=== PATIENT | male | born 1985 | race Caucasian/White ===

== ENCOUNTER 2020-01-18 19:49 | Emergency (ER) | payer MEDICARE, MEDICAID ==
--- NOTE | 2020-01-18 20:29 | ER Document Report ---
ED Medical Screen (RME) - General Chief Complaint: Psych Problem Stated Complaint: PSYCH Time Seen by Provider: 01/18/20 20:21 Primary Care Provider: ADALBERTO VIERA MD [Primary Care Provider] - Follow up as needed Notes: HPI: 34-year-old male with schizophrenic type history presenting for hearing voices states he has heard voices for 10 years does not tell him to do anything specific such as harming others or harming himself but does admit to snorting Adderall twice today states he then called EMS because he had overused his medications in this way. Patient states that when he snorts the Adderall he feels like an "voice ninja". PHYSICAL EXAMINATION: Patient is very disjointed in his speech pattern and thought pattern. Patient stops our conversation to state that he is hearing voices again. Patient denies wanting to harm others. Patient lung sounds are clear to auscultation regular rate and rhythm. I have greeted and performed a rapid initial assessment of this patient. A comprehensive ED assessment and evaluation of the patient, analysis of test results and completion of medical decision making process will be conducted by an additional ED providers. TRAVEL OUTSIDE OF THE [place] IN LAST 30 DAYS: No - Related Data Allergies/Adverse Reactions: diphenhydramine HCl [From Benadryl] Allergy (Verified 09/01/14 13:35) haloperidol [From Haldol] Allergy (Verified 09/01/14 13:35) haloperidol lactate [From Haldol] Allergy (Verified 09/01/14 13:35) Home Medications: depakote, abilify, med q mnth Past Medical History - Social History Frequency of alcohol use: None Drug Abuse: Prescription drugs Psychiatric Medical History: Reports: Hx Bipolar Disorder, Hx Schizophrenia - Immunizations Hx Diphtheria, Pertussis, Tetanus Vaccination: Yes Physical Exam - Vital signs Vitals: Temp Pulse Resp BP Pulse Ox 98.4 F 100 20 148/93 H 97 01/18/20 20:02 01/18/20 20:02 01/18/20 20:02 01/18/20 20:02 01/18/20 20:02 Course - Vital Signs Vital signs: Temp Pulse Resp BP Pulse Ox 98.4 F 100 20 148/93 H 97 01/18/20 20:02 01/18/20 20:02 01/18/20 20:02 01/18/20 20:02 01/18/20 20:02 Doctor's Discharge - Discharge Referrals: ADALBERTO VIERA MD [Primary Care Provider] - Follow up as needed
[2020-01-18 20:56] LABS: ABSOLUTE BASOPHILS # (AUTO) 0.1 10^3/uL (0.0-0.2); ABSOLUTE EOSINOPHILS # (AUTO) 0.2 10^3/uL (0.0-0.6); ABSOLUTE LYMPHOCYTES (AUTO) 2.4 10^3/uL (0.5-4.7); ABSOLUTE NEUT (AUTO) 9.1 10^3/uL (1.7-8.2); BASOPHILS % (AUTO) 0.9 % (0-2); EOSINOPHILS % (AUTO) 1.2 % (0-6); HEMATOCRIT 44.7 % (37.9-51.0); HEMOGLOBIN 15.5 g/dL (13.5-17.0); LYMPHOCYTES % (AUTO) 18.8 % (13-45); MEAN CORPUSCULAR HEMOGLOBIN 29.5 pg (27.0-33.4); MEAN CORPUSCULAR HGB CONC 34.6 g/dL (32.0-36.0); MEAN CORPUSCULAR VOLUME 85 fl (80-97); MONOCYTES % (AUTO) 7.9 % (3-13); PLATELET COUNT 428 10^3/uL (150-450); RED BLOOD COUNT 5.24 10^6/uL (4.35-5.55); RED CELL DISTRIBUTION WIDTH 14.5 % (11.5-14.0); SEGMENTED NEUTROPHILS % (AUTO) 71.2 % (42-78); TOTAL CELLS COUNTED % (AUTO) 100 %; WHITE BLOOD COUNT 12.8 10^3/uL (4.0-10.5)
[2020-01-18 21:01] LABS: APPEARANCE,URINE SLIGHTLY-CLOUDY; BILIRUBIN,URINE NEGATIVE (NEGATIVE); COLOR,URINE AMBER; GLUCOSE, URINE NEGATIVE (NEGATIVE); KETONES,URINE TRACE mg/dL (NEGATIVE); LEUKOCYTE ESTERASE,URINE NEGATIVE (NEGATIVE); NITRITE,URINE NEGATIVE (NEGATIVE); PROTEIN,URINE 30 mg/dL (NEGATIVE); URINE SPECIFIC GRAVITY 1.032
[2020-01-18 21:26] LABS: URINE BARBITURATES SCREEN NEGATIVE; URINE BENZODIAZEPINES SCREEN NEGATIVE; URINE COCAINE SCREEN NEGATIVE; URINE MARIJUANA (THC) SCREEN NEGATIVE; URINE METHADONE SCREEN NEGATIVE; URINE PHENCYCLIDINE SCREEN NEGATIVE
[2020-01-18 21:28] LABS: URINE AMPHETAMINES SCREEN UNCONFIRMED POSITIVE
[2020-01-18 21:29] LABS: ALBUMIN 5.3 g/dL (3.5-5.0); ALKALINE PHOSPHATASE 111 U/L (38-126); ANION GAP 12 (5-19); ASPARTATE AMINO TRANSFERASE 51 U/L (17-59); BILIRUBIN,DIRECT 0.1 mg/dL (0.0-0.4); BILIRUBIN,TOTAL 0.7 mg/dL (0.2-1.3); BLOOD UREA NITROGEN 15 mg/dL (7-20); CALCIUM 9.8 mg/dL (8.4-10.2); CARBON DIOXIDE 24 mmol/L (22-30); CHLORIDE 105 mmol/L (98-107); GLUCOSE 96 mg/dL (75-110); POTASSIUM 4.5 mmol/L (3.6-5.0)
[2020-01-18 21:30] LABS: ACETAMINOPHEN < 10 ug/mL (10-30); ALCOHOL < 10 mg/dL (NONE DETECTED); SALICYLATE < 1.0 mg/dL (2.0-20.0)
--- NOTE | 2020-01-18 23:10 | ER Document Report ---
ED Psych Disorder / Suicide - General Chief Complaint: Psych Problem Stated Complaint: PSYCH Time Seen by Provider: 01/18/20 20:21 Primary Care Provider: ADALBERTO VIERA MD [Primary Care Provider] - Follow up as needed Notes: Patient is a 34-year-old male who presents emergency department after snorting 30 mg of Adderall. Patient has a history of schizophrenia. He states, "I feel I am Williams reincarnated." He denies any suicidal or homicidal ideation. States that he has been hearing voices for 10 years and they never really have gone away. The voices have not told him to do anything bad, but he states that he sometimes hears Gustavo Matthews's voice talk to him and he believes that landing on the [place] is a conspiracy theory. Current medications include Adderall, Zyprexa, fluoxetine, Abilify. TRAVEL OUTSIDE OF THE [place] IN LAST 30 DAYS: No - Related Data Allergies/Adverse Reactions: diphenhydramine HCl [From Benadryl] Allergy (Verified 09/01/14 13:35) haloperidol [From Haldol] Allergy (Verified 09/01/14 13:35) haloperidol lactate [From Haldol] Allergy (Verified 09/01/14 13:35) Home Medications: depakote, abilify, med q mnth Past Medical History - Social History Smoking Status: Current Every Day Smoker Frequency of alcohol use: None Drug Abuse: Prescription drugs Family History: None Patient has homicidal ideation: No Psychiatric Medical History: Reports: Hx Bipolar Disorder, Hx Schizophrenia - Immunizations Hx Diphtheria, Pertussis, Tetanus Vaccination: Yes Review of Systems - Review of Systems Notes: REVIEW OF SYSTEMS: CONSTITUTIONAL : Denies recent illness. Denies recent unintentional weight loss. Denies fever, chills, or sweats. EENT: Denies eye, ear, throat, or mouth pain, discharge, or symptoms. Denies nasal or sinus congestion. CARDIOVASCULAR: Denies chest pain. RESPIRATORY: Denies shortness of breath, cough, congestion, difficulty breathing, or wheezing. GASTROINTESTINAL: Denies nausea, vomiting, and diarrhea. Denies abdominal pain. Denies constipation. GENITOURINARY: Denies difficulty urinating, burning, blood in urine, urgency or frequency. MUSCULOSKELETAL: Denies neck and back pain. Denies joint pain or swelling. SKIN: Denies rash, itchiness, or lesions HEMATOLOGIC : Denies easy bruising or bleeding. LYMPHATIC: Denies swollen, painful, enlarged glands. NEUROLOGICAL: Denies no numbness or tingling denies weakness. Denies headache. Denies altered mental status. Denies alteration in speech. PSYCHIATRIC: See HPI. All other systems reviewed and negative. Physical Exam - Vital signs Vitals: Temp Pulse Resp BP Pulse Ox 98.4 F 100 20 148/93 H 97 01/18/20 20:02 01/18/20 20:02 01/18/20 20:02 01/18/20 20:02 01/18/20 20:02 - Notes Notes: PHYSICAL EXAMINATION: GENERAL: Appears well, healthy, well-nourished, no acute distress. HEAD: Normocephalic, atraumatic. EYES: PERRL, conjunctiva normal, all extraocular movements intact, sclera nonicteric ENT: Moist mucous membranes. NECK: Supple, no noticeable swelling, redness, rash. Normal range of motion. LUNGS: Equal breath sounds bilaterally and clear to auscultation. No wheezes rales or rhonchi. CARDIOVASCULAR: S1-S2, regular rate, regular rhythm. Radial pulses 2+, normal. ABDOMEN: Normoactive bowel sounds. Soft, nontender, no guarding, no rebound tenderness, and no masses palpated. EXTREMITIES: Normal strength and range of motion, no pitting or edema. No cyanosis. NEUROLOGICAL: Moves all extremities upon command. Strength 5/5 in all extremities. PSYCH: Normal mood, normal affect. SKIN: Warm, dry. No rash, lesions, ulcerations noted. Normal skin turgor. Course - Re-evaluation Re-evalutation: 01/18/20 23:10 Hematology shows a slight leukocytosis of 12,800. Chemistries are unremarkable. ALT is only slightly elevated. Protein and albumin are slightly elevated. He also has trace ketones in his urine. He is most likely dehydrated. Patient has amphetamines on his toxicology, but he is currently on Adderall. Salicylates, acetaminophen, and alcohol are negative. We will add valproic acid level to check to see if he is therapeutic. 01/19/20 08:43 Valproic acid level is for the most part just about therapeutic. Patient is medically clear for mental health evaluation by Dr. Alexis and staff. - Vital Signs Vital signs: Temp Pulse Resp BP Pulse Ox 98.4 F 100 20 148/93 H 97 01/18/20 20:02 01/18/20 20:02 01/18/20 20:02 01/18/20 20:02 01/18/20 20:02 - Laboratory Result Diagrams: 01/18/20 20:35 01/18/20 20:35 Laboratory results interpreted by me: 01/18/20 01/18/20 01/18/20 20:35 20:35 20:35 WBC 12.8 H RDW 14.5 H Absolute Neuts (auto) 9.1 H ALT 59 H Total Protein 9.0 H Albumin 5.3 H Urine Protein 30 H Urine Ketones TRACE H Urine Urobilinogen 2.0 H Urine Ascorbic Acid 40 H Salicylates < 1.0 L Acetaminophen < 10 L Valproic Acid 01/18/20 20:35 WBC RDW Absolute Neuts (auto) ALT Total Protein Albumin Urine Protein Urine Ketones Urine Urobilinogen Urine Ascorbic Acid Salicylates Acetaminophen Valproic Acid 49.5 L - EKG Interpretation by Me Additional EKG results interpreted by me: 01/18/20 23:13 Sinus tachycardia. Rate 109. WA 152; QRS 86; QT 340; QTc 458. No ST elevations or depressions noted. No acute change other than tachycardia compared to last EKG done on September 01, 2014. Discharge - Discharge Clinical Impression: Auditory hallucinations Condition: Stable Disposition: PSYCH HOSP/UNIT Referrals: ADALBERTO VIERA MD [Primary Care Provider] - Follow up as needed
[2020-01-18] MEDS ORDERED: MELATONIN 5 MG TABLET PO ONE (23:57)
[2020-01-19] MEDS ORDERED: NICOTINE 21 MG/24 HR PATCH.TD24 TD ONE (01:32)
--- NOTE | 2020-01-19 08:29 | EKG REPORT ---
SEVERITY:- OTHERWISE NORMAL ECG - SINUS TACHYCARDIA : Confirmed by: Abrahan Osuna MD 19-Jan-2020 08:29:14
[2020-01-19] MEDS ORDERED: OLANZAPINE 5 MG TABLET PO ONE (14:24)
[2020-01-19] MEDS ORDERED: FLUOXETINE HCL 20 MG CAPSULE PO ONE (14:25)
[2020-01-19] MEDS ORDERED: VALPROATE SODIUM SYRUP 250 MG/5 ML UDCUP PO SCH (14:30)
--- NOTE | 2020-01-19 14:33 | ER Document Report ---
Doctor's Note Notes: Patient's vital signs are previous labs, diagnostic imaging reviewed. Reviewed mental health notes, nurses notes and previous vital signs. Patient is in no distress at this time denies any SI or HI. States he feels good. Does not want to go to [place] for detox from stimulants. General: alert oriented Heart: Regular rate rhythm Lungs: CTABLS Psych: normal affect A&P: patient is medically cleared. pending mental health eval Update: he is cleared by mental health. I will discharge patient.
[2020-01-19 16:54] VITALS: BP 148/89
== END 2020-01-19 16:45 | disposition home or self-care (01) ==
LOC: ER 19:49
DX: R44.0 Auditory hallucinations (principal); F19.10 Other psychoactive substance abuse, uncomplicated; F17.200 Nicotine dependence, unspecified, uncomplicated
CPT/HCPCS: 93005; 99284; 36415; 80307 ×4; 85025; 80053; 81001; 80164; 93010; A9270 ×5; J3490